=== PATIENT | female | born 1945 ===

== ENCOUNTER 2021-02-20 06:52 | Day surgery (SDC) | payer OTHER ==
[~2021-02-20 06:52] MED LIST: AVALIDE 300-121 EACH PO; LIPITOR20 MG PO; METFORMIN HCL500 M3 PO; NORVASC5 MG PO; PREVACID30 M1 PO; RESTORIL30 MG PO; SIMVASTATIN20 MG PO; SULINDAC200 MG PO; SYNTHROID50 MCG PO
[2021-02-20] MEDS ORDERED: CORTISPORIN EAR10 M1 OTIC (11:37)
[2021-02-20] MEDS ORDERED: AMOX-CLAV 875-1 EACH PO (11:37)
[2021-02-20] MEDS ORDERED: ZOFRAN8 MG PO (11:37)
== END 2021-02-20 14:20 | disposition home or self-care (01) ==
LOC: CIR.AMB 06:52
PROVIDERS: ATTEND Otolaryngology Otology & Neurotology
DX: H90.A11 Conductive hearing loss, unilateral, right ear with restricted hearing on the contralateral side (principal); H90.11 Conductive hearing loss, unilateral, right ear, with unrestricted hearing on the contralateral side; H72.01 Central perforation of tympanic membrane, right ear; Z20.822 Contact with and (suspected) exposure to COVID-19